=== PATIENT | male | born 1960 | race Caucasian/White ===

== ENCOUNTER 2018-04-23 10:40 | Day surgery (SDC) | payer MEDICAID ==
[~2018-04-23] VITALS: Ht 170.2 cm; Wt 102.3 kg
[~2018-04-23 10:40] MED LIST: FURO-150 PO; GABA-532 PO; LORA-512 PO; RIFA550T PO; SPIR100T PO; VITA-268 PO
[2018-04-23] MEDS ORDERED: amlodipine PO (10:56)
[2018-04-23] MEDS ORDERED: GABA-532 PO (10:57)
[2018-04-23 11:28] VITALS: BP 110/96
[2018-04-23] MEDS ORDERED: fentaNYL/PF 50MCG/1 ML 2ML syringe ONE (11:54)
[2018-04-23] MEDS ORDERED: MIDAZolam 5mg/5ml vial ONE (11:55)
[2018-04-23] MEDS ORDERED: LIDOcaine Viscous 15ml cup ONE (11:55)
[2018-04-23 12:10] VITALS: BP 130/79
[2018-04-23 12:20] VITALS: BP 148/85
[2018-04-23 12:30] VITALS: BP 133/75
[2018-04-23 12:40] VITALS: BP 145/83
== END 2018-04-23 13:15 | disposition home or self-care (01) ==
LOC: GI LAB 10:40
PROVIDERS: ATTEND Internal Medicine Gastroenterology
DX: I85.00 Esophageal varices without bleeding (principal); K29.80 Duodenitis without bleeding; K29.70 Gastritis, unspecified, without bleeding; K76.6 Portal hypertension; K31.89 Other diseases of stomach and duodenum
CPT/HCPCS: 43239; 99152; J2250; J3010; J7030; A4620

== ENCOUNTER 2019-08-28 07:33 | Day surgery (SDC) | payer MEDICAID ==
[~2019-08-28] VITALS: Ht 170.2 cm; Wt 100.0 kg
[~2019-08-28 07:33] MED LIST changes: -LORA-512 PO; -RIFA550T PO; -SPIR100T PO; -VITA-268 PO; +amlodipine PO
[2019-08-28 07:56] VITALS: BP 131/99
[2019-08-28] MEDS ORDERED: AMIL5TAB8 PO (08:08)
[2019-08-28] MEDS ORDERED: SPIR50TA5 PO (08:09)
[2019-08-28] MEDS ORDERED: fentaNYL/PF 50MCG/1 ML 2ML syringe ONE (08:38)
[2019-08-28] MEDS ORDERED: LIDOcaine Viscous 15ml cup ONE (08:38)
[2019-08-28] MEDS ORDERED: MIDAZolam 5mg/5ml vial ONE (08:38)
[2019-08-28 10:12] VITALS: BP 120/71
[2019-08-28 10:22] VITALS: BP 124/79
[2019-08-28 10:32] VITALS: BP 135/78
[2019-08-28 10:37] VITALS: BP 122/75
== END 2019-08-28 10:38 | disposition home or self-care (01) ==
LOC: GI LAB 07:33
PROVIDERS: ATTEND Internal Medicine Gastroenterology
DX: I85.00 Esophageal varices without bleeding (principal); K76.6 Portal hypertension; K31.89 Other diseases of stomach and duodenum
CPT/HCPCS: 43235; 99152; J2250; J3010; J7040; A4620

== ENCOUNTER 2020-02-10 20:56 | Emergency (ER) | payer MEDICAID ==
[~2020-02-10] VITALS: Ht 170.2 cm; Wt 99.8 kg
[~2020-02-10 20:56] MED LIST changes: +AMIL5TAB8 PO; -GABA-532 PO; +SPIR50TA5 PO; -amlodipine PO
[2020-02-10 20:59] VITALS: BP 154/77
[2020-02-10] MEDS ORDERED: CEPH500C5 PO (21:35)
[2020-02-10] MEDS ORDERED: cephalexin 250mg capsule PO ONE (21:40)
== END 2020-02-10 22:20 | disposition home or self-care (01) ==
LOC: ER 20:56
DX: L03.115 Cellulitis of right lower limb (principal); N18.9 Chronic kidney disease, unspecified; Z88.0 Allergy status to penicillin; Z79.2 Long term (current) use of antibiotics; Z79.899 Other long term (current) drug therapy
CPT/HCPCS: 99283

== ENCOUNTER 2021-02-04 14:17 | Emergency (ER) | payer MEDICAID ==
[~2021-02-04] VITALS: Ht 170.2 cm; Wt 80.9 kg
[2021-02-04 15:28] VITALS: BP 148/78
[2021-02-04 16:48] LABS: BASOPHILS % (AUTO) 0.4 % (0-1); EOSINOPHILS # (AUTO) 0.2 X10'3 (0-0.9); EOSINOPHILS % (AUTO) 3.2 % (0-6); HEMATOCRIT 34.8 % (42.0-52.0); HEMOGLOBIN 12.1 g/dl (14.0-17.9); LYMPHOCYTES # (AUTO) 1.4 X10'3 (1.1-4.8); LYMPHOCYTES % (AUTO) 26.1 % (21-51); MEAN CORPUSCULAR HEMOGLOBIN 32.7 PG (27.0-31.0); MEAN CORPUSCULAR HGB CONC 34.6 g/dL (33.0-36.5); MEAN CORPUSCULAR VOLUME 94.4 FL (78-98); MONOCYTES # (AUTO) 0.5 X10'3 (0-0.9); MONOCYTES % (AUTO) 8.2 % (2-12); NEUTROPHILS # (AUTO) 3.4 X10'3 (1.8-7.7); NEUTROPHILS % (AUTO) 62.1 % (42-75); PLATELET COUNT 83 X10'3 (140-440); RED BLOOD COUNT 3.68 X10'6 (4.70-6.10); RED CELL DISTRIBUTION WIDTH 14.8 % (11.5-14.5); WHITE BLOOD COUNT 5.5 X10'3 (4.5-11.0)
[2021-02-04 17:10] LABS: ANION GAP 8 (8-16); BLOOD UREA NITROGEN 13 MG/DL (7-18); BUN/CREATININE RATIO 17.3 (5.4-32.0); CALCIUM 9.3 MG/DL (8.5-10.1); CHLORIDE 110 MMOL/L (99-107); CREATININE 0.75 MG/DL (0.60-1.10); GLUCOSE 109 MG/DL (70-104); POTASSIUM 3.5 MMOL/L (3.5-5.1); SODIUM 146 MMOL/L (135-145); TOTAL CARBON DIOXIDE 27.9 MMOL/L (24-32); eGFR > 90 ML/MIN
[2021-02-04 17:11] LABS: ALANINE AMINOTRANSFERASE 82 U/L (12-78); ALBUMIN 2.5 G/DL (3.4-5.0); ALBUMIN/GLOBULIN RATIO 0.6 (1.1-1.5); ALKALINE PHOSPHATASE 119 IU/L (46-116); ASPARTATE AMINO TRANSFERASE 106 U/L (10-37); BILIRUBIN,TOTAL 2.8 MG/DL (0.1-1.0); TOTAL PROTEIN 6.6 G/DL (6.4-8.2)
== END 2021-02-04 21:06 | disposition left against medical advice (07) ==
LOC: ER 14:17
DX: R60.0 Localized edema (principal); N18.9 Chronic kidney disease, unspecified; Z88.0 Allergy status to penicillin; Z79.899 Other long term (current) drug therapy; Z53.21 Procedure and treatment not carried out due to patient leaving prior to being seen by health care provider
CPT/HCPCS: 36415; 71045; 80053; 83880; 85025

== ENCOUNTER 2021-04-15 02:15 | Emergency (ER) | payer MEDICAID ==
[~2021-04-15] VITALS: Ht 172.7 cm; Wt 100.0 kg
[2021-04-15 02:17] VITALS: BP 162/87
[2021-04-15] MEDS ORDERED: naproxen 500mg tablet PO ONE (02:55)
== END 2021-04-15 05:43 | disposition home or self-care (01) ==
LOC: ER 02:16
DX: K72.10 Chronic hepatic failure without coma (principal); N18.9 Chronic kidney disease, unspecified; F15.10 Other stimulant abuse, uncomplicated; Z88.0 Allergy status to penicillin
CPT/HCPCS: 71045; 99283

== ENCOUNTER 2021-04-15 21:19 | Emergency (ER) | payer MEDICAID ==
[~2021-04-15] VITALS: Ht 167.6 cm; Wt 63.6 kg
[2021-04-15 21:38] VITALS: BP 164/86
== END 2021-04-15 23:26 | disposition left against medical advice (07) ==
LOC: ER 21:20
DX: M54.9 Dorsalgia, unspecified (principal); R10.9 Unspecified abdominal pain; Z53.21 Procedure and treatment not carried out due to patient leaving prior to being seen by health care provider

== ENCOUNTER 2021-04-16 00:04 | Emergency (ER) | payer MEDICAID ==
[~2021-04-16] VITALS: Ht 167.6 cm; Wt 93.2 kg
[2021-04-16 00:16] VITALS: BP 163/80
[2021-04-16] MEDS ORDERED: naproxen 500mg tablet PO ONE (01:45)
[2021-04-17] MEDS ORDERED: SPIR25TA5 PO (16:28)
[2021-04-17] MEDS ORDERED: PANT40TA54 PO (16:28)
[2021-04-17] MEDS ORDERED: LACT10SO3 PO (16:28)
== END 2021-04-16 02:20 | disposition home or self-care (01) ==
LOC: ER 00:05
DX: M54.89 Other dorsalgia (principal); G89.29 Other chronic pain; D69.6 Thrombocytopenia, unspecified; N18.9 Chronic kidney disease, unspecified; F15.90 Other stimulant use, unspecified, uncomplicated; Z88.0 Allergy status to penicillin; Z79.899 Other long term (current) drug therapy
CPT/HCPCS: 99282

== ENCOUNTER 2021-04-17 09:20 | Inpatient (IN) | payer MEDICAID ==
[~2021-04-17] VITALS: Ht 177.8 cm; Wt 84.4 kg
[2021-04-17] MEDS ORDERED: haloperidol lactate 5mg/ml inj IM ONE (10:00)
[2021-04-17 10:19] LABS: BASOPHILS % (AUTO) 0.3 % (0-1); EOSINOPHILS # (AUTO) 0.2 X10'3 (0-0.9); EOSINOPHILS % (AUTO) 2.7 % (0-6); HEMATOCRIT 34.1 % (42.0-52.0); HEMOGLOBIN 11.6 g/dl (14.0-17.9); LYMPHOCYTES # (AUTO) 0.8 X10'3 (1.1-4.8); LYMPHOCYTES % (AUTO) 12.5 % (21-51); MEAN CORPUSCULAR HGB CONC 33.9 g/dL (33.0-36.5); MEAN CORPUSCULAR VOLUME 94.5 FL (78-98); MEAN PLATELET VOLUME 9.1 FL (7.4-10.4); MONOCYTES # (AUTO) 0.5 X10'3 (0-0.9); MONOCYTES % (AUTO) 7.8 % (2-12); NEUTROPHILS # (AUTO) 4.9 X10'3 (1.8-7.7); NEUTROPHILS % (AUTO) 76.7 % (42-75); PLATELET COUNT 75 X10'3 (140-440); RED BLOOD COUNT 3.61 X10'6 (4.70-6.10); RED CELL DISTRIBUTION WIDTH 14.4 % (11.5-14.5); WHITE BLOOD COUNT 6.5 X10'3 (4.5-11.0)
[2021-04-17 10:53] LABS: CLARITY,URINE CLOUDY (Clear); COLOR,URINE YELLOW (Yellow); GLUCOSE, URINE NEGATIVE (Neg); KETONES,URINE NEGATIVE (Neg); LEUKOCYTE ESTERASE ,URINE SMALL (Neg); NITRITES, URINE POSITIVE (Neg); OCCULT BLOOD,URINE SMALL (Neg); PROTEIN,URINE NEGATIVE (Neg)
[2021-04-17 10:54] LABS: UA COLLECTION TYPE STRAIGHT CATH
[2021-04-17 11:03] LABS: BACTERIA,URINE 4+ /HPF (Neg); MUCUS STRANDS NONE SEEN /LPF (Neg); SQUAMOUS EPITHELIAL CELL,UR NONE SEEN /LPF (FEW); WBC CLUMPS,URINE FEW /HPF (NEGATIVE); WBC,URINE 30-50 /HPF (0-4)
[2021-04-17 11:18] LABS: ALANINE AMINOTRANSFERASE 63 U/L (12-78); ALBUMIN 2.2 G/DL (3.4-5.0); ALBUMIN/GLOBULIN RATIO 0.5 (1.1-1.5); ALKALINE PHOSPHATASE 166 IU/L (46-116); ASPARTATE AMINO TRANSFERASE 85 U/L (10-37); BILIRUBIN,TOTAL 3.2 MG/DL (0.1-1.0); BLOOD UREA NITROGEN 14 MG/DL (7-18); BUN/CREATININE RATIO 20.6 (5.4-32.0); CALCIUM 8.7 MG/DL (8.5-10.1); CREATININE 0.68 MG/DL (0.60-1.10); GLUCOSE 99 MG/DL (70-104); POTASSIUM 4.2 MMOL/L (3.5-5.1); SODIUM 146 MMOL/L (135-145); TOTAL CARBON DIOXIDE 26.4 MMOL/L (24-32); TOTAL PROTEIN 6.4 G/DL (6.4-8.2); eGFR > 90 ML/MIN
[2021-04-17 11:20] LABS: URINE AMPHETAMINE SCREEN POSITIVE (Neg); URINE BARBITUATE SCREEN NEGATIVE (Neg); URINE BENZODIAZEPINES SCREEN NEGATIVE (Neg); URINE CANNABINOID SCREEN NEGATIVE (Neg); URINE COCAINE SCREEN NEGATIVE (Neg); URINE METHADONE SCREEN NEGATIVE (Neg); URINE OPIATE SCREEN NEGATIVE (Neg); URINE PHENCYCLIDINE SCREEN NEGATIVE (Neg)
[2021-04-17 11:23] LABS: CREATINE KINASE 298 U/L (39-308); ETHANOL < 0.010 GM/DL (0.0-0.010)
[2021-04-17 11:41] LABS: ANION GAP 6 (8-16); CHLORIDE 114 MMOL/L (99-107)
[2021-04-17] MEDS ORDERED: CefTRIAXone 2gm/D5W 50ml BAG 50 ML IV ONE (12:25)
[2021-04-17] MEDS: levoFLOXACIN-Levaquin 500mg/D5 100 ML IV SCH (16:15)
[2021-04-17] MEDS ORDERED: potassium Cl 20 mEq SR tablet PO PRN (16:15)
[2021-04-17] MEDS ORDERED: normal saline 1000ml 1,000 ML IV SCH (16:15)
[2021-04-17] MEDS ORDERED: magnesium 4gm in 100ml NS 100 ML IV PRN (16:15)
[2021-04-17] MEDS ORDERED: ondansetron/PF 4mg/2ml inj IV PRN (16:15)
[2021-04-17] MEDS ORDERED: acetaminophen 650mg rectal suppository RC PRN (16:15)
[2021-04-17] MEDS ORDERED: magnesium 2GM in 50ml NS 50 ML IV PRN (16:15)
[2021-04-17] MEDS ORDERED: potassium CL 10mEq/100ml bag 100 ML IV PRN (16:15)
[2021-04-17 16:28] LABS: MAGNESIUM 1.6 MG/DL (1.5-2.4)
[2021-04-17] MEDS ORDERED: LACT10SO3 PO (16:28)
[2021-04-17] MEDS ORDERED: SPIR25TA5 PO (16:28)
[2021-04-17] MEDS ORDERED: PANT40TA54 PO (16:28)
[2021-04-17] MEDS: K and/or MAG REPLACEMENT MC SCH (20:00)
[2021-04-17] MEDS ORDERED: PERFLUTREN PROTEIN-A MICROSPHR (Optison) 0.22 MG/ML 3ML VIAL IV ONE (20:20)
[2021-04-17 20:45] VITALS: BP 126/84
[2021-04-17] MEDS: furosemide 40mg/4ml inj IV SCH (21:54)
[2021-04-17 22:00] VITALS: BP 157/70
[2021-04-18] MEDS: ceFAZolin/D5W- 1GM premix 50 ML IV SCH ×3 (00:20→16:04)
[2021-04-18 06:00] VITALS: BP 121/58
--- NOTE | 2021-04-18 06:42 | NUR ---
Problems reprioritized. Patient report given, questions answered & plan of care reviewed with TERRI Portillo.
[2021-04-18 07:02] LABS: BASOPHILS % (AUTO) 0.3 % (0-1); EOSINOPHILS # (AUTO) 0.2 X10'3 (0-0.9); EOSINOPHILS % (AUTO) 3.7 % (0-6); HEMATOCRIT 30.7 % (42.0-52.0); HEMOGLOBIN 10.5 g/dl (14.0-17.9); LYMPHOCYTES # (AUTO) 1.1 X10'3 (1.1-4.8); LYMPHOCYTES % (AUTO) 19.8 % (21-51); MEAN CORPUSCULAR HEMOGLOBIN 32.1 PG (27.0-31.0); MEAN CORPUSCULAR HGB CONC 34.3 g/dL (33.0-36.5); MEAN CORPUSCULAR VOLUME 93.5 FL (78-98); MEAN PLATELET VOLUME 8.9 FL (7.4-10.4); MONOCYTES # (AUTO) 0.5 X10'3 (0-0.9); MONOCYTES % (AUTO) 8.1 % (2-12); NEUTROPHILS # (AUTO) 3.9 X10'3 (1.8-7.7); NEUTROPHILS % (AUTO) 68.1 % (42-75); PLATELET COUNT 74 X10'3 (140-440); RED BLOOD COUNT 3.28 X10'6 (4.70-6.10); RED CELL DISTRIBUTION WIDTH 13.9 % (11.5-14.5); WHITE BLOOD COUNT 5.7 X10'3 (4.5-11.0)
[2021-04-18 07:56] LABS: ANION GAP 11 (8-16); BLOOD UREA NITROGEN 11 MG/DL (7-18); BUN/CREATININE RATIO 17.5 (5.4-32.0); CALCIUM 8.4 MG/DL (8.5-10.1); CHLORIDE 116 MMOL/L (99-107); CREATININE 0.63 MG/DL (0.60-1.10); GLUCOSE 78 MG/DL (70-104); MAGNESIUM 1.4 MG/DL (1.5-2.4); POTASSIUM 3.5 MMOL/L (3.5-5.1); SODIUM 151 MMOL/L (135-145); TOTAL CARBON DIOXIDE 23.7 MMOL/L (24-32); eGFR > 90 ML/MIN
[2021-04-18] MEDS: levoFLOXACIN-Levaquin 500mg/D5 100 ML IV SCH (08:00)
[2021-04-18] MEDS: furosemide 40mg/4ml inj IV SCH (08:00)
[2021-04-18 11:00] VITALS: BP 131/66
[2021-04-18] MEDS: magnesium Cl slow-release 64mg tablet PO PRN ×2 (13:36→17:47)
[2021-04-18 15:00] VITALS: BP 134/58
[2021-04-18] MEDS ORDERED: albumin (human) 25% 100 ML IV solution IV ONE (17:15)
--- NOTE | 2021-04-18 18:33 | NUR ---
Problems reprioritized. Patient report given, questions answered & plan of care reviewed with Lico/RN.
[2021-04-18] MEDS: dextrose 5%-water 1,000 ML IV SCH (18:37)
[2021-04-18] MEDS: K and/or MAG REPLACEMENT MC SCH (20:00)
[2021-04-18 22:00] VITALS: BP 147/63
[2021-04-19 02:00] VITALS: BP 150/75
[2021-04-19 06:00] VITALS: BP 136/78
[2021-04-19 06:40] LABS: BASOPHILS % (AUTO) 0.4 % (0-1); EOSINOPHILS # (AUTO) 0.2 X10'3 (0-0.9); EOSINOPHILS % (AUTO) 3.6 % (0-6); HEMATOCRIT 30.3 % (42.0-52.0); HEMOGLOBIN 10.4 g/dl (14.0-17.9); LYMPHOCYTES # (AUTO) 1.3 X10'3 (1.1-4.8); LYMPHOCYTES % (AUTO) 25.8 % (21-51); MEAN CORPUSCULAR HEMOGLOBIN 32.5 PG (27.0-31.0); MEAN CORPUSCULAR HGB CONC 34.5 g/dL (33.0-36.5); MEAN CORPUSCULAR VOLUME 94.2 FL (78-98); MONOCYTES # (AUTO) 0.6 X10'3 (0-0.9); MONOCYTES % (AUTO) 11.5 % (2-12); NEUTROPHILS % (AUTO) 58.7 % (42-75); PLATELET COUNT 71 X10'3 (140-440); RED BLOOD COUNT 3.21 X10'6 (4.70-6.10); RED CELL DISTRIBUTION WIDTH 14.1 % (11.5-14.5); WHITE BLOOD COUNT 5.1 X10'3 (4.5-11.0)
[2021-04-19 07:16] LABS: ALBUMIN 2.2 G/DL (3.4-5.0); ANION GAP 9 (8-16); BLOOD UREA NITROGEN 14 MG/DL (7-18); CALCIUM 8.5 MG/DL (8.5-10.1); CHLORIDE 113 MMOL/L (99-107); CREATININE 0.56 MG/DL (0.60-1.10); GLUCOSE 90 MG/DL (70-104); MAGNESIUM 1.7 MG/DL (1.5-2.4); POTASSIUM 3.4 MMOL/L (3.5-5.1); SODIUM 147 MMOL/L (135-145); TOTAL CARBON DIOXIDE 25.2 MMOL/L (24-32); eGFR > 90 ML/MIN
[2021-04-19] MEDS ORDERED: furosemide 20 MG/2 ML vial IV SCH (08:00)
[2021-04-19] MEDS: K and/or MAG REPLACEMENT MC SCH ×2 (08:00→20:00)
[2021-04-19] MEDS: levoFLOXACIN-Levaquin 500mg/D5 100 ML IV SCH (08:33)
[2021-04-19] MEDS: potassium Cl 20 mEq SR tablet PO PRN ×2 (09:42→14:36)
[2021-04-19 11:00] VITALS: BP 133/68
[2021-04-19] MEDS: spironolactone 25 MG tablet PO SCH (11:14)
[2021-04-19] MEDS: pantoprazole 40mg Tablet.DR PO SCH (11:14)
[2021-04-19] MEDS: lactulose 20gm/30ml cup PO SCH ×3 (13:00→20:52)
--- NOTE | 2021-04-19 13:28 | NUR ---
Student documentation: I have reviewed and agree with all interventions, assessments performed and documented by MITA Perez Missile Mechanic. Addendum: 04/19/21 at 1329 by Korin Guan SS Amended: Links added.
[2021-04-19] MEDS: dextrose 5%-water 1,000 ML IV SCH (13:38)
[2021-04-19] MEDS ORDERED: LEVO500T90 PO (14:07)
[2021-04-19 14:57] LABS: ALBUMIN 2.1 G/DL (3.4-5.0); ANION GAP 9 (8-16); BLOOD UREA NITROGEN 13 MG/DL (7-18); BUN/CREATININE RATIO 18.1 (5.4-32.0); CALCIUM 8.5 MG/DL (8.5-10.1); CHLORIDE 110 MMOL/L (99-107); CREATININE 0.72 MG/DL (0.60-1.10); GLUCOSE 124 MG/DL (70-104); POTASSIUM 3.4 MMOL/L (3.5-5.1); SODIUM 145 MMOL/L (135-145); TOTAL CARBON DIOXIDE 26.5 MMOL/L (24-32); eGFR > 90 ML/MIN
[2021-04-19 15:00] VITALS: BP 130/70
[2021-04-19 18:00] VITALS: BP 143/74
--- NOTE | 2021-04-19 18:19 | NUR ---
Problems reprioritized. Patient report given, questions answered & plan of care reviewed with Johanna/RN.
[2021-04-19 22:00] VITALS: BP 152/72
[2021-04-20 02:00] VITALS: BP 130/66
[2021-04-20 06:00] VITALS: BP 158/80
--- NOTE | 2021-04-20 06:30 | NUR ---
Patient in room PCU 3016. I have received report from Johanna MURRAY and had the opportunity to ask questions and assume patient care.
[2021-04-20 06:54] LABS: BASOPHILS % (AUTO) 0.2 % (0-1); EOSINOPHILS # (AUTO) 0.1 X10'3 (0-0.9); EOSINOPHILS % (AUTO) 2.2 % (0-6); HEMATOCRIT 33.3 % (42.0-52.0); HEMOGLOBIN 11.3 g/dl (14.0-17.9); LYMPHOCYTES # (AUTO) 0.7 X10'3 (1.1-4.8); MEAN CORPUSCULAR HEMOGLOBIN 31.8 PG (27.0-31.0); MEAN CORPUSCULAR HGB CONC 33.9 g/dL (33.0-36.5); MEAN PLATELET VOLUME 8.9 FL (7.4-10.4); MONOCYTES # (AUTO) 0.7 X10'3 (0-0.9); MONOCYTES % (AUTO) 11.1 % (2-12); NEUTROPHILS # (AUTO) 4.4 X10'3 (1.8-7.7); NEUTROPHILS % (AUTO) 74.5 % (42-75); PLATELET COUNT 68 X10'3 (140-440); RED BLOOD COUNT 3.54 X10'6 (4.70-6.10); RED CELL DISTRIBUTION WIDTH 14.2 % (11.5-14.5)
[2021-04-20 07:06] LABS: ALBUMIN 2.3 G/DL (3.4-5.0); ANION GAP 10 (8-16); BLOOD UREA NITROGEN 11 MG/DL (7-18); BUN/CREATININE RATIO 17.7 (5.4-32.0); CALCIUM 8.8 MG/DL (8.5-10.1); CHLORIDE 110 MMOL/L (99-107); CREATININE 0.62 MG/DL (0.60-1.10); GLUCOSE 102 MG/DL (70-104); MAGNESIUM 1.6 MG/DL (1.5-2.4); POTASSIUM 3.7 MMOL/L (3.5-5.1); SODIUM 143 MMOL/L (135-145); TOTAL CARBON DIOXIDE 23.5 MMOL/L (24-32); eGFR > 90 ML/MIN
[2021-04-20] MEDS: K and/or MAG REPLACEMENT MC SCH ×2 (08:00→20:00)
[2021-04-20] MEDS: pantoprazole 40mg Tablet.DR PO SCH (09:09)
[2021-04-20] MEDS: lactulose 20gm/30ml cup PO SCH ×4 (09:09→20:47)
[2021-04-20] MEDS: spironolactone 25 MG tablet PO SCH (09:09)
[2021-04-20 11:00] VITALS: BP 107/45
[2021-04-20] MEDS: levoFLOXACIN 500mg tablet PO SCH (11:02)
--- NOTE | 2021-04-20 11:36 | NUR ---
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 Spoke with Dr. Presley, patient refused meds. Not willing to put patient on a withdrawal protocol. I bartered with patient to have him take his lactulose and antibiotic with Jello and apple juice.
[2021-04-20] MEDS: dextrose 5%-water 1,000 ML IV SCH (12:01)
--- NOTE | 2021-04-20 13:23 | NUR ---
Patient is requesting that we spread the lactulose out more. Willing to take next dose at 1500 with Kd.
[2021-04-20 15:00] VITALS: BP 108/56
--- NOTE | 2021-04-20 16:12 | NUR ---
Patient does not want to be hooked up to the IV fluids. Patient educated about benefits, but still does not want them.
--- NOTE | 2021-04-20 18:31 | NUR ---
Problems reprioritized. Patient report given, questions answered & plan of care reviewed with Valerie MURRAY.
--- NOTE | 2021-04-20 18:32 | NUR ---
Patient in room PCU 3016. I have received report from TERRI Solorzano and had the opportunity to ask questions and assume patient care.
[2021-04-20 19:00] VITALS: BP 156/77
[2021-04-20 23:00] VITALS: BP 136/69
[2021-04-21 03:00] VITALS: BP 122/72
[2021-04-21] MEDS: dextrose 5%-water 1,000 ML IV SCH (05:15)
--- NOTE | 2021-04-21 06:11 | NUR ---
Problems reprioritized. Patient report given, questions answered & plan of care reviewed with TERRI Solorzano.
--- NOTE | 2021-04-21 06:30 | NUR ---
Patient in room PCU 3016. I have received report from Josette MURRAY and had the opportunity to ask questions and assume patient care.
[2021-04-21 06:40] LABS: BASOPHILS % (AUTO) 0.3 % (0-1); EOSINOPHILS # (AUTO) 0.1 X10'3 (0-0.9); EOSINOPHILS % (AUTO) 2.4 % (0-6); HEMATOCRIT 33.1 % (42.0-52.0); HEMOGLOBIN 11.3 g/dl (14.0-17.9); LYMPHOCYTES # (AUTO) 0.7 X10'3 (1.1-4.8); LYMPHOCYTES % (AUTO) 16.7 % (21-51); MEAN PLATELET VOLUME 9.2 FL (7.4-10.4); MONOCYTES # (AUTO) 0.8 X10'3 (0-0.9); MONOCYTES % (AUTO) 17.8 % (2-12); NEUTROPHILS # (AUTO) 2.8 X10'3 (1.8-7.7); NEUTROPHILS % (AUTO) 62.8 % (42-75); PLATELET COUNT 64 X10'3 (140-440); RED BLOOD COUNT 3.52 X10'6 (4.70-6.10); RED CELL DISTRIBUTION WIDTH 13.9 % (11.5-14.5); WHITE BLOOD COUNT 4.4 X10'3 (4.5-11.0)
[2021-04-21 07:06] LABS: ALBUMIN 2.1 G/DL (3.4-5.0); ANION GAP 6 (8-16); BLOOD UREA NITROGEN 13 MG/DL (7-18); CHLORIDE 112 MMOL/L (99-107); CREATININE 0.62 MG/DL (0.60-1.10); GLUCOSE 99 MG/DL (70-104); MAGNESIUM 1.6 MG/DL (1.5-2.4); SODIUM 142 MMOL/L (135-145); TOTAL CARBON DIOXIDE 24.2 MMOL/L (24-32); eGFR > 90 ML/MIN
[2021-04-21] MEDS: K and/or MAG REPLACEMENT MC SCH ×2 (08:00→20:00)
[2021-04-21] MEDS: lactulose 20gm/30ml cup PO SCH ×3 (08:11→20:44)
[2021-04-21] MEDS: spironolactone 25 MG tablet PO SCH (08:12)
[2021-04-21] MEDS: pantoprazole 40mg Tablet.DR PO SCH (08:12)
--- NOTE | 2021-04-21 10:14 | NUR ---
Initial: Pt admitted w/ RLE cellulitis and metabolic encephalopathy per EMR. Pt currently A&O x 2 and confused per physical assessment though able to feed self. Currently on Regular diet w/ 100% intake of meals meeting est nutrient needs at this time. [facility] 04/20 receiving routine lactulose. No nutrition intervention implemented at this time, will continue to monitor. Recs: 1. Continue Regular diet as tolerated 2. Bowel care per rx 3. Scaled wts Addendum: 04/21/21 at [address] Amended: Links added.
--- NOTE | 2021-04-21 10:15 | NUR ---
Went to talk to patient about treatment options and patient is unable to answer any questions right now. I will try again.
[2021-04-21 10:53] LABS: ALANINE AMINOTRANSFERASE 50 U/L (12-78); ALBUMIN/GLOBULIN RATIO 0.5 (1.1-1.5); ALKALINE PHOSPHATASE 145 IU/L (46-116); ASPARTATE AMINO TRANSFERASE 67 U/L (10-37); BILIRUBIN,DIRECT 0.9 MG/DL (0-0.3); BILIRUBIN,TOTAL 1.9 MG/DL (0.1-1.0); TOTAL PROTEIN 6.2 G/DL (6.4-8.2)
--- NOTE | 2021-04-21 11:39 | NUR ---
Patient is currently sleeping and is finicky about being disturbed. He becomes non-compliant when he feels like we are "bothering" him. I am going to cluster his care and give the AB and Lactulose together.
[2021-04-21] MEDS: levoFLOXACIN 500mg tablet PO SCH (12:40)
[2021-04-21 15:00] VITALS: BP 142/78
--- NOTE | 2021-04-21 16:07 | NUR ---
Page Sent PAGER ID: [phone] MESSAGE: Room 3016A: José Miguel Price: What is our plan for him? Still 1798? [place] [phone]
--- NOTE | 2021-04-21 16:09 | NUR ---
DR Sharma called back. 1798 is the intent. Paged Social work for packet to be sent to floor.
--- NOTE | 2021-04-21 18:14 | NUR ---
Problems reprioritized. Patient report given, questions answered & plan of care reviewed with Josette MURRAY.
--- NOTE | 2021-04-21 18:15 | NUR ---
Patient in room PCU 3016. I have received report from TERRI Solorzano and had the opportunity to ask questions and assume patient care.
[2021-04-21 19:00] VITALS: BP 142/72
[2021-04-22 06:00] VITALS: BP 134/62
--- NOTE | 2021-04-22 06:27 | NUR ---
Problems reprioritized. Patient report given, questions answered & plan of care reviewed with TERRI Solorzano.
--- NOTE | 2021-04-22 06:30 | NUR ---
Patient in room PCU 3016. I have received report from Josette MURRAY and had the opportunity to ask questions and assume patient care.
[2021-04-22 06:37] LABS: BASOPHILS % (AUTO) 0.2 % (0-1); EOSINOPHILS # (AUTO) 0.2 X10'3 (0-0.9); EOSINOPHILS % (AUTO) 4.8 % (0-6); HEMATOCRIT 32.4 % (42.0-52.0); HEMOGLOBIN 11.1 g/dl (14.0-17.9); LYMPHOCYTES # (AUTO) 1.1 X10'3 (1.1-4.8); LYMPHOCYTES % (AUTO) 25.1 % (21-51); MEAN CORPUSCULAR HEMOGLOBIN 32.3 PG (27.0-31.0); MEAN CORPUSCULAR HGB CONC 34.1 g/dL (33.0-36.5); MEAN CORPUSCULAR VOLUME 94.6 FL (78-98); MEAN PLATELET VOLUME 9.2 FL (7.4-10.4); MONOCYTES # (AUTO) 0.7 X10'3 (0-0.9); NEUTROPHILS # (AUTO) 2.4 X10'3 (1.8-7.7); NEUTROPHILS % (AUTO) 54.9 % (42-75); PLATELET COUNT 68 X10'3 (140-440); RED BLOOD COUNT 3.43 X10'6 (4.70-6.10); RED CELL DISTRIBUTION WIDTH 14.3 % (11.5-14.5); WHITE BLOOD COUNT 4.4 X10'3 (4.5-11.0)
[2021-04-22 07:03] LABS: ANION GAP 5 (8-16); BLOOD UREA NITROGEN 13 MG/DL (7-18); BUN/CREATININE RATIO 23.2 (5.4-32.0); CALCIUM 8.4 MG/DL (8.5-10.1); CHLORIDE 111 MMOL/L (99-107); CREATININE 0.56 MG/DL (0.60-1.10); GLUCOSE 84 MG/DL (70-104); POTASSIUM 3.8 MMOL/L (3.5-5.1); SODIUM 140 MMOL/L (135-145); TOTAL CARBON DIOXIDE 23.9 MMOL/L (24-32); eGFR > 90 ML/MIN
--- NOTE | 2021-04-22 07:14 | NUR ---
Faxed completed [phone] documentation to [facility]
[2021-04-22] MEDS: K and/or MAG REPLACEMENT MC SCH ×2 (08:00→20:00)
[2021-04-22] MEDS: lactulose 20gm/30ml cup PO SCH ×3 (08:27→20:30)
[2021-04-22] MEDS: spironolactone 25 MG tablet PO SCH (08:28)
[2021-04-22] MEDS: pantoprazole 40mg Tablet.DR PO SCH (08:28)
[2021-04-22 11:00] VITALS: BP 119/66
--- NOTE | 2021-04-22 11:45 | NUR ---
Page Sent PAGER ID: [phone] MESSAGE: Room 3016A: José Miguel Price: [facility] assessed patient, placing [phone] hold. Will update once I have paperwork from her. [place] [phone]
--- NOTE | 2021-04-22 13:17 | NUR ---
Patient thinks we are giving him too much lactulose. He refused his afternoon dose and his antibiotic. Will try again in a few hours.
[2021-04-22] MEDS: levoFLOXACIN 500mg tablet PO SCH (13:18)
--- NOTE | 2021-04-22 14:42 | NUR ---
Student documentation: I have reviewed and agree with all interventions, assessments performed and documented by MITA Perez Cnc Machinist. Addendum: 04/22/21 at 1444 by Korin Guan SS Amended: Links added.
--- NOTE | 2021-04-22 14:43 | NUR ---
Student documentation: I have reviewed and agree with all interventions, assessments performed and documented by MITA Perez Family Law Attorney. Addendum: 04/22/21 at 1444 by Korin Guan SS Amended: Links added.
[2021-04-22 15:00] VITALS: BP 134/62
--- NOTE | 2021-04-22 18:26 | NUR ---
Problems reprioritized. Patient report given, questions answered & plan of care reviewed with Josette MURRAY.
[2021-04-22 19:00] VITALS: BP 123/60
[2021-04-22 23:00] VITALS: BP 144/66
[2021-04-23 03:00] VITALS: BP 106/57
--- NOTE | 2021-04-23 06:26 | NUR ---
Problems reprioritized. Patient report given, questions answered & plan of care reviewed with TERRI Perez.
[2021-04-23 07:16] VITALS: BP 113/55
[2021-04-23] MEDS: spironolactone 25 MG tablet PO SCH (08:00)
[2021-04-23] MEDS: pantoprazole 40mg Tablet.DR PO SCH (08:00)
[2021-04-23] MEDS: K and/or MAG REPLACEMENT MC SCH ×2 (08:00→20:00)
[2021-04-23] MEDS: levoFLOXACIN 500mg tablet PO SCH (11:00)
[2021-04-23] MEDS: lactulose 20gm/30ml cup PO SCH ×3 (12:42→20:46)
[2021-04-23 18:00] VITALS: BP 113/68
[2021-04-23 22:00] VITALS: BP 140/66
[2021-04-24 02:00] VITALS: BP 128/68
[2021-04-24 06:00] VITALS: BP 121/62
--- NOTE | 2021-04-24 06:21 | NUR ---
Problems reprioritized. Patient report given, questions answered & plan of care reviewed with Ana MURRAY .
[2021-04-24] MEDS: spironolactone 25 MG tablet PO SCH (07:54)
[2021-04-24] MEDS: pantoprazole 40mg Tablet.DR PO SCH (07:54)
[2021-04-24] MEDS: lactulose 20gm/30ml cup PO SCH ×4 (07:56→19:54)
[2021-04-24] MEDS: K and/or MAG REPLACEMENT MC SCH ×2 (08:00→20:00)
[2021-04-24] MEDS: acetaminophen 325mg tablet PO PRN ×2 (10:03→22:17)
[2021-04-24 11:00] VITALS: BP 123/57
[2021-04-24] MEDS: levoFLOXACIN 500mg tablet PO SCH (11:06)
--- NOTE | 2021-04-24 12:48 | NUR ---
Page Sent PAGER ID: [phone] MESSAGE: Patient José Miguel Price RM 316A - pulled out IV. Ammonia levels are higher, unlikely going to mental health today. Is he okay without IV or would you like us to replace it? Francesca [facility] ext. [phone]
[2021-04-24 15:00] VITALS: BP 133/73
[2021-04-24 18:00] VITALS: BP 123/58
--- NOTE | 2021-04-24 18:26 | NUR ---
Patient in room PCU 3016. I have received report from Jessica MURRAY and had the opportunity to ask questions and assume patient care.
[2021-04-24] MEDS ORDERED: rifaximin 550mg tablet PO SCH (20:00)
[2021-04-24 22:00] VITALS: BP 123/57
[2021-04-25] MEDS: lactulose 20gm/30ml cup PO SCH (01:25)
[2021-04-25 01:47] VITALS: BP 117/56
[2021-04-25 06:00] VITALS: BP 125/65
--- NOTE | 2021-04-25 06:14 | NUR ---
Problems reprioritized. Patient report given, questions answered & plan of care reviewed with Jessica RN.
--- NOTE | 2021-04-25 09:30 | NUR ---
Pt refused all morning meds. States he doesn't want to go to mental health and wants to leave AMA. Will continue to monitor
[2021-04-25 09:36] LABS: BASOPHILS % (AUTO) 0.3 % (0-1); EOSINOPHILS # (AUTO) 0.2 X10'3 (0-0.9); EOSINOPHILS % (AUTO) 3.3 % (0-6); HEMATOCRIT 35.5 % (42.0-52.0); HEMOGLOBIN 11.8 g/dl (14.0-17.9); LYMPHOCYTES # (AUTO) 1.3 X10'3 (1.1-4.8); MEAN CORPUSCULAR HEMOGLOBIN 31.9 PG (27.0-31.0); MEAN CORPUSCULAR HGB CONC 33.3 g/dL (33.0-36.5); MEAN CORPUSCULAR VOLUME 95.9 FL (78-98); MEAN PLATELET VOLUME 9.2 FL (7.4-10.4); MONOCYTES # (AUTO) 0.5 X10'3 (0-0.9); MONOCYTES % (AUTO) 9.4 % (2-12); NEUTROPHILS # (AUTO) 3.1 X10'3 (1.8-7.7); PLATELET COUNT 92 X10'3 (140-440); RED CELL DISTRIBUTION WIDTH 14.8 % (11.5-14.5)
[2021-04-25 11:00] VITALS: BP 117/68
[2021-04-25 11:16] LABS: ALBUMIN 2.1 G/DL (3.4-5.0); BLOOD UREA NITROGEN 14 MG/DL (7-18); BUN/CREATININE RATIO 23.7 (5.4-32.0); CALCIUM 8.7 MG/DL (8.5-10.1); CREATININE 0.59 MG/DL (0.60-1.10); GLUCOSE 118 MG/DL (70-104); TOTAL CARBON DIOXIDE 22.4 MMOL/L (24-32); eGFR > 90 ML/MIN
--- NOTE | 2021-04-25 13:08 | NUR ---
PAGER ID: [phone] MESSAGE: MELISSA ON [phone], I AM GOING TO DC TELE MONITORING ON , HE IS REFUSING TO WEAR IT. [facility] WAS HERE TO RENEW 1798, CHECKING ON AVAILABLE BED FOR [facility]. RENATAX
--- NOTE | 2021-04-25 15:23 | NUR ---
Page Sent PAGER ID: [phone] MESSAGE: PATRICIA Price [id number] is leaving AMA. Angel is alerting [facility] [phone]
--- NOTE | 2021-04-25 15:36 | NUR ---
pt left AMA. Pt siged AMA form, Dr. Williams mg. Pt is has a 1799 and is considered a danger to himself and others. This RN called [facility] police department and let them know that pt stated he was going to [employer] and to [facility].
[2021-04-26 09:01] LABS: POTASSIUM 4.5 MMOL/L (3.3-5.1)
[2021-04-26 15:33] LABS: ANION GAP 3 (8-16); CHLORIDE 111 MMOL/L (99-107); POTASSIUM 4.5 MMOL/L (3.5-5.1); SODIUM 136 MMOL/L (135-145)
== END 2021-04-25 15:28 | disposition left against medical advice (07) | DRG 279 ==
LOC: ER 09:20 → ED HOLD 16:14 → PCU 3S 20:35
PROVIDERS: ADMIT Internal Medicine; ATTEND Internal Medicine
DX: K72.90 Hepatic failure, unspecified without coma (principal); G93.41 Metabolic encephalopathy; D61.818 Other pancytopenia; E87.0 Hyperosmolality and hypernatremia; L03.115 Cellulitis of right lower limb; F20.9 Schizophrenia, unspecified; Z53.29 Procedure and treatment not carried out because of patient's decision for other reasons; K21.9 Gastro-esophageal reflux disease without esophagitis; N18.9 Chronic kidney disease, unspecified; N39.0 Urinary tract infection, site not specified; R68.0 Hypothermia, not associated with low environmental temperature; Z88.0 Allergy status to penicillin; Z79.899 Other long term (current) drug therapy
CPT/HCPCS: 36415; 70450; 71045; 80048; 80053; 80076; 80305; 80320; 81001; 82140; 82550; 82948; 83605; 83735; 85007; 85025; 87077; 87081; 87088; 87186; 93005; 93306; 96365; 96366; 96372; 97161; 97530; 99285; G0378; J0690; J0696; J1630; J1940; J1956; J7030; J7070; P9047

== ENCOUNTER 2021-04-30 13:09 | Emergency (ER) | payer MEDICAID ==
[~2021-04-30] VITALS: Ht 172.7 cm; Wt 85.0 kg
[~2021-04-30 13:09] MED LIST changes: -AMIL5TAB8 PO; -FURO-150 PO; +LACT10SO3 PO; +PANT40TA54 PO; +SPIR25TA5 PO; -SPIR50TA5 PO
[2021-04-30 13:13] VITALS: BP 133/72
[2021-04-30] MEDS ORDERED: naloxone 2mg/2ml inj IV ONE (13:45)
[2021-04-30] MEDS ORDERED: normal saline 1000ML IV soln IVB ONE (13:45)
[2021-04-30 14:12] LABS: BASOPHILS % (AUTO) 0.3 % (0-1); EOSINOPHILS # (AUTO) 0.2 X10'3 (0-0.9); EOSINOPHILS % (AUTO) 3.6 % (0-6); HEMOGLOBIN 9.9 g/dl (14.0-17.9); LYMPHOCYTES % (AUTO) 20.7 % (21-51); MEAN CORPUSCULAR HEMOGLOBIN 32.1 PG (27.0-31.0); MEAN CORPUSCULAR HGB CONC 34.1 g/dL (33.0-36.5); MEAN CORPUSCULAR VOLUME 94.1 FL (78-98); MEAN PLATELET VOLUME 9.4 FL (7.4-10.4); MONOCYTES # (AUTO) 0.7 X10'3 (0-0.9); MONOCYTES % (AUTO) 14.7 % (2-12); NEUTROPHILS # (AUTO) 2.9 X10'3 (1.8-7.7); NEUTROPHILS % (AUTO) 60.7 % (42-75); PLATELET COUNT 80 X10'3 (140-440); RED BLOOD COUNT 3.08 X10'6 (4.70-6.10); RED CELL DISTRIBUTION WIDTH 14.8 % (11.5-14.5); WHITE BLOOD COUNT 4.7 X10'3 (4.5-11.0)
[2021-04-30 14:35] LABS: ALANINE AMINOTRANSFERASE 56 U/L (12-78); ALBUMIN/GLOBULIN RATIO 0.5 (1.1-1.5); ALKALINE PHOSPHATASE 170 IU/L (46-116); ANION GAP 7 (8-16); ASPARTATE AMINO TRANSFERASE 70 U/L (10-37); BILIRUBIN,TOTAL 1.8 MG/DL (0.1-1.0); BLOOD UREA NITROGEN 14 MG/DL (7-18); BUN/CREATININE RATIO 19.7 (5.4-32.0); CALCIUM 8.5 MG/DL (8.5-10.1); CHLORIDE 111 MMOL/L (99-107); CREATININE 0.71 MG/DL (0.60-1.10); GLUCOSE 87 MG/DL (70-104); LACTIC SEPSIS 2.1 MMOL/L (0.4-2.0); POTASSIUM 3.5 MMOL/L (3.5-5.1); SODIUM 144 MMOL/L (135-145); TOTAL CARBON DIOXIDE 26.5 MMOL/L (24-32); eGFR > 90 ML/MIN
[2021-04-30 14:37] LABS: ETHANOL < 0.010 GM/DL (0.0-0.010)
[2021-04-30] MEDS ORDERED: lactulose 20gm/30ml cup PO ONE (16:00)
[2021-04-30] MEDS ORDERED: LACT10SO32 PO (16:07)
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
== END 2021-04-30 16:43 | disposition home or self-care (01) ==
LOC: ER 13:09
DX: R41.82 Altered mental status, unspecified (principal); E72.20 Disorder of urea cycle metabolism, unspecified; H11.31 Conjunctival hemorrhage, right eye; N18.9 Chronic kidney disease, unspecified; F15.90 Other stimulant use, unspecified, uncomplicated; Z59.00 Homelessness unspecified; Z88.0 Allergy status to penicillin; Z79.899 Other long term (current) drug therapy
CPT/HCPCS: 36415; 70450; 71045; 80053; 80320; 82140; 83605; 84484; 85025; 87040; 93005; 96361; 96374; 99285; J2310; J7030

== ENCOUNTER 2022-07-14 12:36 | Emergency (ER) | payer MEDICAID ==
[~2022-07-14] VITALS: Ht 170.2 cm; Wt 83.6 kg
[~2022-07-14 12:36] MED LIST changes: +LACT10SO78 PO
[2022-07-14 13:10] LABS: BASOPHILS % (AUTO) 0.4 % (0-1); EOSINOPHILS # (AUTO) 0.1 X10'3 (0-0.9); EOSINOPHILS % (AUTO) 1.9 % (0-6); HEMATOCRIT 39.8 % (42.0-52.0); HEMOGLOBIN 13.7 g/dl (14.0-17.9); LYMPHOCYTES # (AUTO) 0.9 X10'3 (1.1-4.8); LYMPHOCYTES % (AUTO) 19.4 % (21-51); MEAN CORPUSCULAR HGB CONC 34.5 g/dL (33.0-36.5); MEAN CORPUSCULAR VOLUME 101.7 FL (78-98); MEAN PLATELET VOLUME 10.2 FL (7.4-10.4); MONOCYTES # (AUTO) 0.4 X10'3 (0-0.9); MONOCYTES % (AUTO) 9.8 % (2-12); NEUTROPHILS # (AUTO) 3.1 X10'3 (1.8-7.7); NEUTROPHILS % (AUTO) 68.5 % (42-75); PLATELET COUNT 59 X10'3 (140-440); RED BLOOD COUNT 3.92 X10'6 (4.70-6.10); RED CELL DISTRIBUTION WIDTH 14.5 % (11.5-14.5); WHITE BLOOD COUNT 4.6 X10'3 (4.5-11.0)
[2022-07-14 13:24] LABS: ALANINE AMINOTRANSFERASE 63 U/L (12-78); ALBUMIN 3.1 G/DL (3.4-5.0); ALKALINE PHOSPHATASE 193 IU/L (46-116); ANION GAP 5 (8-16); ASPARTATE AMINO TRANSFERASE 177 U/L (10-37); BILIRUBIN,TOTAL 11.2 MG/DL (0.1-1.0); BLOOD UREA NITROGEN 9 MG/DL (7-18); BUN/CREATININE RATIO 11.5 (10.0-20.0); CALCIUM 9.5 MG/DL (8.5-10.1); CHLORIDE 101 MMOL/L (99-107); CREATININE 0.78 MG/DL (0.60-1.10); GLUCOSE 115 MG/DL (70-104); LIPASE 65 U/L (73-393); POTASSIUM 3.8 MMOL/L (3.5-5.1); SODIUM 136 MMOL/L (135-145); TOTAL CARBON DIOXIDE 30.3 MMOL/L (24-32); eGFR > 90 ML/MIN
[2022-07-14 13:26] LABS: ALBUMIN/GLOBULIN RATIO 0.8 (1.1-1.5); TOTAL PROTEIN 7.1 G/DL (6.4-8.2)
[2022-07-14] MEDS ORDERED: CefTRIAXone 2gm/D5W 50ml BAG 50 ML IV ONE (13:30)
[2022-07-14] MEDS ORDERED: normal saline 1000ML IV soln IV ONE (13:30)
[2022-07-14 14:21] LABS: LACTIC SEPSIS 1.7 MMOL/L (0.4-2.0)
[2022-07-14] MEDS ORDERED: lactulose 20gm/30ml cup PO ONE (14:45)
[2022-07-14 15:02] LABS: CLARITY,URINE CLEAR (Clear); COLOR,URINE AMBER (Yellow); GLUCOSE, URINE NEGATIVE (Neg); KETONES,URINE NEGATIVE (Neg); LEUKOCYTE ESTERASE ,URINE NEGATIVE (Neg); NITRITES, URINE NEGATIVE (Neg); OCCULT BLOOD,URINE TRACE-INTACT (Neg); PROTEIN,URINE NEGATIVE (Neg); UROBILINOGEN,URINE >=8.0 E.U/dL (0.2-1.0)
[2022-07-14 15:12] LABS: UA COLLECTION TYPE CLN CATCH MIDSTREAM
[2022-07-14 15:15] LABS: BACTERIA,URINE NONE SEEN /HPF (Neg); RBC,URINE 0-2 /HPF (0-2); WBC,URINE 0-4 /HPF (0-4)
[2022-07-14 15:16] LABS: MUCUS STRANDS NONE SEEN /LPF (Neg); SQUAMOUS EPITHELIAL CELL,UR FEW /LPF (FEW)
[2022-07-14 15:20] VITALS: BP 175/98
[2022-07-14] MEDS ORDERED: dexamethasone sod phosphate 10mg/ml inj IV STA (15:20)
[2022-07-14] MEDS ORDERED: PRED20TA PO (16:53)
[2022-07-14] MEDS ORDERED: LACT10SO3 PO (18:26)
== END 2022-07-14 17:27 | disposition home or self-care (01) ==
LOC: ER 12:37
DX: K70.10 Alcoholic hepatitis without ascites (principal); E80.6 Other disorders of bilirubin metabolism; K70.30 Alcoholic cirrhosis of liver without ascites; N18.9 Chronic kidney disease, unspecified; F15.20 Other stimulant dependence, uncomplicated; Z88.0 Allergy status to penicillin; Z88.1 Allergy status to other antibiotic agents; Z59.00 Homelessness unspecified
CPT/HCPCS: 36415; 71045; 74176; 80053; 80320; 81001; 82140; 83605; 83690; 84145; 85025; 85610; 87040; 96361; 96365; 96375; 99285; J0696; J1100; J3490; J7030

== ENCOUNTER 2024-05-12 23:59 | Inpatient (IN) | payer MEDICAID ==
[~2024-05-12] VITALS: Ht 172.7 cm; Wt 89.6 kg
[~2024-05-12 23:59] MED LIST changes: -LACT10SO3 PO; -LACT10SO78 PO; +NO HOME MEDS; -PANT40TA54 PO; -SPIR25TA5 PO
[2024-05-13 00:56] LABS: BASOPHILS % (AUTO) 0.6 % (0-1); EOSINOPHILS # (AUTO) 0.1 X10'3 (0-0.9); HEMOGLOBIN 12.8 g/dl (14.0-17.9); LYMPHOCYTES # (AUTO) 1.2 X10'3 (1.1-4.8); LYMPHOCYTES % (AUTO) 29.8 % (21-51); MEAN CORPUSCULAR HEMOGLOBIN 33.4 PG (27.0-31.0); MEAN CORPUSCULAR HGB CONC 33.7 g/dL (33.0-36.5); MEAN CORPUSCULAR VOLUME 99.2 FL (78-98); MEAN PLATELET VOLUME 8.7 FL (7.4-10.4); MONOCYTES # (AUTO) 0.4 X10'3 (0-0.9); NEUTROPHILS # (AUTO) 2.2 X10'3 (1.8-7.7); NEUTROPHILS % (AUTO) 55.6 % (42-75); PLATELET COUNT 83 X10'3 (140-440); RED BLOOD COUNT 3.83 X10'6 (4.70-6.10); RED CELL DISTRIBUTION WIDTH 14.4 % (11.5-14.5)
[2024-05-13] MEDS: thiamine 100mg tablet PO ONE (01:13)
[2024-05-13] MEDS: folic acid 1mg tablet PO ONE (01:13)
[2024-05-13] MEDS: multivitamins, therapeutics tablet PO SCH (01:13)
[2024-05-13 01:14] LABS: ALBUMIN 2.8 G/DL (3.4-5.0); ANION GAP 10 (8-16); BLOOD UREA NITROGEN 12 MG/DL (7-18); BUN/CREATININE RATIO 17.4 (10.0-20.0); CALCIUM 9.1 MG/DL (8.5-10.1); CHLORIDE 111 MMOL/L (99-107); CREATININE 0.69 MG/DL (0.60-1.10); ETHANOL < 10 MG/DL (<10); GLUCOSE 100 MG/DL (70-104); POTASSIUM 3.2 MMOL/L (3.5-5.1); SODIUM 144 MMOL/L (135-145); THYROID STIMULATING HORMONE 3.21 ulU/ml (0.34-4.50); TOTAL CARBON DIOXIDE 23.2 MMOL/L (24-32); eCRCL 109 ML/MIN; eGFR > 90 ML/MIN
[2024-05-13 01:25] LABS: PLATELET ESTIMATE DECREASED
[2024-05-13] MEDS: normal saline 1000ml 1,000 ML IV ONE (01:49)
[2024-05-13] MEDS ORDERED: magnesium sulf-water 4G/100mL 100 ML IV PRN (03:20)
[2024-05-13] MEDS ORDERED: acetaminophen 325mg tablet PO PRN (03:20)
[2024-05-13] MEDS ORDERED: mag hydrox/Alum hydrox/simeth 30ml oral suspension PO PRN (03:20)
[2024-05-13] MEDS ORDERED: potassium Cl 20 mEq SR tablet PO PRN ×2 (03:20)
[2024-05-13] MEDS ORDERED: ondansetron/PF 4mg/2ml inj IV PRN (03:20)
[2024-05-13] MEDS ORDERED: magnesium sulf-water 2g/50mL 50 ML IV PRN (03:20)
[2024-05-13] MEDS ORDERED: morphine 2 MG/ML inj. syringe IV PRN (03:20)
[2024-05-13] MEDS ORDERED: magnesium Cl slow-release 64mg tablet PO PRN (03:20)
[2024-05-13] MEDS ORDERED: docusate sod 100mg capsule PO PRN (03:20)
[2024-05-13] MEDS ORDERED: magnesium hydroxide 30ml (MOM) UD suspension PO PRN (03:20)
[2024-05-13] MEDS ORDERED: haloperidol 5mg tablet PO PRN (03:30)
[2024-05-13] MEDS ORDERED: haloperidol lactate 5mg/ml inj IM PRN (03:30)
[2024-05-13] MEDS: normal saline 1000ml 1,000 ML IV SCH (04:54)
[2024-05-13] MEDS: lactulose 20gm/30ml cup PO SCH ×2 (04:54→13:31)
[2024-05-13] MEDS: potassium Cl 40MEQ/1/2NS 520ml 520 ML IV PRN (05:30)
[2024-05-13 06:15] LABS: URINE AMPHETAMINE SCREEN POSITIVE (Neg); URINE BARBITUATE SCREEN NEGATIVE (Neg); URINE BENZODIAZEPINES SCREEN NEGATIVE (Neg); URINE CANNABINOID SCREEN NEGATIVE (Neg); URINE COCAINE SCREEN NEGATIVE (Neg); URINE METHADONE SCREEN NEGATIVE (Neg); URINE OPIATE SCREEN NEGATIVE (Neg); URINE PHENCYCLIDINE SCREEN NEGATIVE (Neg)
[2024-05-13 06:40] LABS: BACTERIA,URINE NONE SEEN /HPF (Neg); BILIRUBIN,URINE MODERATE (Neg); CLARITY,URINE SLIGHTLY CLOUDY (Clear); COLOR,URINE YELLOW (Yellow); GLUCOSE, URINE 100 mg/dl (Neg); KETONES,URINE 40 mg/dl (Neg); LEUKOCYTE ESTERASE ,URINE NEGATIVE (Neg); NITRITES, URINE NEGATIVE (Neg); OCCULT BLOOD,URINE NEGATIVE (Neg); PH,URINE 6.5 (4.8-8.0); PROTEIN,URINE 30 mg/dl (Neg); RBC,URINE 0-2 /HPF (0-2); SQUAMOUS EPITHELIAL CELL,UR NONE SEEN /LPF (FEW); UA COLLECTION TYPE CLN CATCH MIDSTREAM; WBC,URINE 0-4 /HPF (0-4)
[2024-05-13 07:39] LABS: ALANINE AMINOTRANSFERASE 48 U/L (12-78); ALBUMIN 2.5 G/DL (3.4-5.0); ALKALINE PHOSPHATASE 145 IU/L (46-116); ANION GAP 8 (8-16); APTT 29 SECONDS (22-32); ASPARTATE AMINO TRANSFERASE 64 U/L (10-37); BILIRUBIN,TOTAL 4.8 MG/DL (0.1-1.0); BLOOD UREA NITROGEN 11 MG/DL (7-18); BUN/CREATININE RATIO 15.5 (10.0-20.0); CALCIUM 8.7 MG/DL (8.5-10.1); CHLORIDE 113 MMOL/L (99-107); CREATININE 0.71 MG/DL (0.60-1.10); GLUCOSE 96 MG/DL (70-104); INR 1.2 INR; POTASSIUM 3.6 MMOL/L (3.5-5.1); PROTHROMBIN TIME 12.5 SECONDS (9.0-12.0); SODIUM 144 MMOL/L (135-145); TOTAL CARBON DIOXIDE 23.4 MMOL/L (24-32); eCRCL 106 ML/MIN; eGFR > 90 ML/MIN
[2024-05-13 07:46] LABS: ABSOLUTE RETICS # 64500 /CUMM (23000-93000); RED BLOOD COUNT 3.44 X10'6 (4.70-6.10); RETICULOCYTE % (AUTO) 1.9 % (0.5-1.5)
[2024-05-13 07:47] LABS: LACTATE DEHYDROGENASE 307 U/L (85-227); LIPASE 98 U/L (16-77); MAGNESIUM 1.6 MG/DL (1.5-2.4); PRO BRAIN NATRIURETIC PEPTIDE < 30 PG/ML (0-125)
[2024-05-13 07:48] LABS: ALBUMIN/GLOBULIN RATIO 0.6 (1.1-1.5); TOTAL PROTEIN 6.7 G/DL (6.4-8.2)
[2024-05-13] MEDS: K and/or MAG REPLACEMENT MC SCH (07:56)
[2024-05-13 08:00] VITALS: RESP 18; O2SAT 98
[2024-05-13] MEDS: folic acid 1mg tablet PO SCH (08:12)
[2024-05-13] MEDS: cyanocobalamin 500mcg tablet PO SCH (08:12)
[2024-05-13] MEDS: morphine 2 MG/ML inj. syringe IV PRN (08:15)
[2024-05-13] MEDS: thiamine 100mg/ml 2ml inj. IV SCH (08:17)
[2024-05-13] MEDS: nicotine 14mg patch - 24hr TD SCH (08:19)
[2024-05-13 08:40] LABS: TOTAL CELLS COUNTED 100
[2024-05-13 08:41] LABS: PLATELET ESTIMATE DECREASED
[2024-05-13 08:43] LABS: HEMOGLOBIN A1C 4.4 % (4.5-6.2)
[2024-05-13] MEDS: folic acid 1mg/0.2ml inj IV SCH (08:46)
[2024-05-13] MEDS ORDERED: PROP20TA6 PO (09:06)
[2024-05-13] MEDS ORDERED: SPIR25TA5 PO (09:06)
[2024-05-13] MEDS ORDERED: PANT40TA54 PO (09:06)
[2024-05-13] MEDS ORDERED: FURO40TA4 PO (09:06)
[2024-05-13] MEDS ORDERED: FLO0.4C PO (09:07)
[2024-05-13 09:23] VITALS: BP 165/75; PULSE 96; RESP 18; TEMP 97.7; O2SAT 99
[2024-05-13 10:32] VITALS: RESP 18; O2SAT 99
[2024-05-13 18:00] VITALS: BP 125/71; PULSE 87; RESP 18; TEMP 98.1; O2SAT 97
[2024-05-13 20:00] VITALS: RESP 18; O2SAT 99
[2024-05-13] MEDS: propranolol 10mg tablet PO SCH (20:08)
[2024-05-13] MEDS: spironolactone 25 MG tablet PO SCH (20:20)
[2024-05-13 22:00] VITALS: BP 141/80; PULSE 75; RESP 14; TEMP 97.5; O2SAT 95
[2024-05-14 05:36] LABS: BASOPHILS % (AUTO) 0.6 % (0-1); EOSINOPHILS # (AUTO) 0.1 X10'3 (0-0.9); EOSINOPHILS % (AUTO) 2.9 % (0-6); HEMATOCRIT 32.5 % (42.0-52.0); HEMOGLOBIN 11.3 g/dl (14.0-17.9); LYMPHOCYTES # (AUTO) 1.2 X10'3 (1.1-4.8); LYMPHOCYTES % (AUTO) 28.2 % (21-51); MEAN CORPUSCULAR HEMOGLOBIN 34.6 PG (27.0-31.0); MEAN CORPUSCULAR HGB CONC 34.7 g/dL (33.0-36.5); MEAN CORPUSCULAR VOLUME 99.5 FL (78-98); MONOCYTES # (AUTO) 0.5 X10'3 (0-0.9); NEUTROPHILS # (AUTO) 2.3 X10'3 (1.8-7.7); NEUTROPHILS % (AUTO) 55.3 % (42-75); PLATELET COUNT 65 X10'3 (140-440); RED BLOOD COUNT 3.26 X10'6 (4.70-6.10); RED CELL DISTRIBUTION WIDTH 14.1 % (11.5-14.5); WHITE BLOOD COUNT 4.1 X10'3 (4.5-11.0)
[2024-05-14 06:00] VITALS: BP 137/73; PULSE 68; RESP 16; TEMP 98.7; O2SAT 95
[2024-05-14 06:07] LABS: ALANINE AMINOTRANSFERASE 51 U/L (12-78); ALBUMIN 2.1 G/DL (3.4-5.0); ALBUMIN/GLOBULIN RATIO 0.5 (1.1-1.5); ALKALINE PHOSPHATASE 139 IU/L (46-116); ANION GAP 4 (8-16); ASPARTATE AMINO TRANSFERASE 84 U/L (10-37); BILIRUBIN,TOTAL 2.4 MG/DL (0.1-1.0); BLOOD UREA NITROGEN 9 MG/DL (7-18); BUN/CREATININE RATIO 14.1 (10.0-20.0); CALCIUM 8.6 MG/DL (8.5-10.1); CHLORIDE 113 MMOL/L (99-107); CHOL/HDL RATIO 2.2 (0.00-4.99); CHOLESTEROL 110 MG/DL (0-200); CREATININE 0.64 MG/DL (0.60-1.10); GLUCOSE 97 MG/DL (70-104); HDL CHOLESTEROL 51 MG/DL (35-60); LDL CHOLESTEROL 48 MG/DL (50-100); MAGNESIUM 1.5 MG/DL (1.5-2.4); PHOSPHORUS 2.7 MG/DL (2.3-4.5); POTASSIUM 3.6 MMOL/L (3.5-5.1); SODIUM 144 MMOL/L (135-145); TOTAL CARBON DIOXIDE 26.7 MMOL/L (24-32); TRIGLYCERIDES 34 MG/DL (20-135); eCRCL 117 ML/MIN; eGFR > 90 ML/MIN
[2024-05-14 06:15] LABS: HBSAG SCREEN Negative (Negative)
[2024-05-14 08:00] VITALS: RESP 18; O2SAT 100
[2024-05-14] MEDS: tamsulosin 0.4mg capsule PO SCH (09:17)
[2024-05-14] MEDS: pantoprazole 40mg Tablet.DR PO SCH (09:18)
[2024-05-14] MEDS: multivitamins, therapeutics tablet PO SCH (09:18)
[2024-05-14] MEDS: furosemide 40mg tablet PO SCH (09:19)
[2024-05-14 10:00] VITALS: BP 132/62; PULSE 66; RESP 16; TEMP 98.2; O2SAT 98
[2024-05-14 18:00] VITALS: BP 127/67; PULSE 65; RESP 18; TEMP 97.8; O2SAT 99
[2024-05-14 20:00] VITALS: RESP 18; O2SAT 99
[2024-05-14 22:00] VITALS: BP 131/76; PULSE 71; RESP 18; TEMP 98.6; O2SAT 99
[2024-05-15] MEDS ORDERED: LORazepam 2 mg/ml vial IV PRN (03:30)
[2024-05-15 05:19] LABS: EOSINOPHILS # (AUTO) 0.2 X10'3 (0-0.9); LYMPHOCYTES # (AUTO) 1.5 X10'3 (1.1-4.8); MEAN PLATELET VOLUME 9.4 FL (7.4-10.4); MONOCYTES # (AUTO) 0.6 X10'3 (0-0.9); WHITE BLOOD COUNT 5.4 X10'3 (4.5-11.0)
[2024-05-15 05:21] LABS: BASOPHILS % (AUTO) 0.6 % (0-1); EOSINOPHILS % (AUTO) 3.3 % (0-6); HEMATOCRIT 33.4 % (42.0-52.0); HEMOGLOBIN 11.1 g/dl (14.0-17.9); LYMPHOCYTES % (AUTO) 27.2 % (21-51); MEAN CORPUSCULAR HEMOGLOBIN 33.4 PG (27.0-31.0); MEAN CORPUSCULAR HGB CONC 33.3 g/dL (33.0-36.5); MEAN CORPUSCULAR VOLUME 100.3 FL (78-98); NEUTROPHILS # (AUTO) 3.1 X10'3 (1.8-7.7); NEUTROPHILS % (AUTO) 57.9 % (42-75); PLATELET COUNT 71 X10'3 (140-440); RED BLOOD COUNT 3.33 X10'6 (4.70-6.10)
[2024-05-15 05:28] LABS: HEPATITIS C VIRUS ANTIBODY Non Reactive (Non Reactive)
[2024-05-15 05:35] LABS: ALANINE AMINOTRANSFERASE 51 U/L (12-78); ALBUMIN 2.1 G/DL (3.4-5.0); ALBUMIN/GLOBULIN RATIO 0.6 (1.1-1.5); ALKALINE PHOSPHATASE 149 IU/L (46-116); ANION GAP 5 (8-16); ASPARTATE AMINO TRANSFERASE 71 U/L (10-37); BILIRUBIN,TOTAL 1.7 MG/DL (0.1-1.0); BLOOD UREA NITROGEN 9 MG/DL (7-18); CALCIUM 8.5 MG/DL (8.5-10.1); CHLORIDE 112 MMOL/L (99-107); GLUCOSE 92 MG/DL (70-104); MAGNESIUM 1.5 MG/DL (1.5-2.4); PHOSPHORUS 3.2 MG/DL (2.3-4.5); POTASSIUM 3.9 MMOL/L (3.5-5.1); SODIUM 143 MMOL/L (135-145); TOTAL CARBON DIOXIDE 26.2 MMOL/L (24-32); TOTAL PROTEIN 5.9 G/DL (6.4-8.2); eCRCL 125 ML/MIN; eGFR > 90 ML/MIN
[2024-05-15 06:00] VITALS: BP 112/62; PULSE 95; RESP 17; TEMP 98.2; O2SAT 98
[2024-05-15 08:00] VITALS: RESP 18; O2SAT 99
[2024-05-15 08:02] VITALS: PULSE 64
[2024-05-15] MEDS: LORazepam 1 MG tablet PO PRN (09:06)
[2024-05-15 10:00] VITALS: BP 130/72; RESP 18; TEMP 97.6; O2SAT 96
[2024-05-15] MEDS ORDERED: MULT-25 PO (12:16)
[2024-05-15] MEDS ORDERED: LACT-373 PO (12:16)
[2024-05-17] MEDS ORDERED: LORazepam 1 MG tablet PO PRN (03:30)
[2024-05-17] MEDS ORDERED: LORazepam 2 mg/ml vial IV PRN (03:30)
== END 2024-05-15 14:31 | disposition home or self-care (01) ==
LOC: ER 05-13 → ED HOLD 05-13 02:35 → SUR 3N 05-13 06:59
PROVIDERS: ADMIT Surgery Surgical Critical Care; ATTEND Internal Medicine
DX: K76.82 Hepatic encephalopathy (principal); K72.90 Hepatic failure, unspecified without coma; D61.818 Other pancytopenia; Z20.822 Contact with and (suspected) exposure to COVID-19; N18.9 Chronic kidney disease, unspecified; E87.6 Hypokalemia; E88.09 Other disorders of plasma-protein metabolism, not elsewhere classified; F19.10 Other psychoactive substance abuse, uncomplicated; N40.0 Benign prostatic hyperplasia without lower urinary tract symptoms; K74.60 Unspecified cirrhosis of liver; F17.210 Nicotine dependence, cigarettes, uncomplicated; F10.20 Alcohol dependence, uncomplicated; Z59.00 Homelessness unspecified; Z88.1 Allergy status to other antibiotic agents; Z88.0 Allergy status to penicillin
CPT/HCPCS: 36415; 71045; 76700; 80048; 80053; 80061; 80305; 80320; 81001; 82140; 82607; 83036; 83615; 83690; 83735; 83880; 84100; 84443; 85007; 85008; 85025; 85045; 85610; 85730; 86803; 86885; 86900; 86901; 87081; 87340; 87522; 87811; 96360; 99285; A6258; G0378; J2270; J3411; J3480; J3490; J7030